=== PATIENT | male | born 1945 | race Caucasian/White ===

== ENCOUNTER 2022-11-20 11:14 | Inpatient (IN) | payer MEDICARE ==
[2022-11-20 12:00] LABS: #Eosinphils 0.2 thou/uL (0.0-0.7); #Lymphocytes 1.5 thou/uL (1.20-3.40); #Monocytes 0.8 thou/uL (0.11-0.59); #Neutrophils 5.4 thou/uL (1.40-6.50); %Basophils 0.2 % (0.0-1.0); %Eosinophils 2.5 % (0.0-10.0); %Lymphocytes 18.4 % (21.0-51.0); %Monocytes 10.6 % (0.0-10.0); %Neutrophils 68.3 % (42.0-75.0); Hemoglobin 12.5 g/dL (14.0-18.0); Mean Corpuscular HGB CONC 33.3 g/dL (32.0-36.0); Platelet Count 259 10x3/uL (130-400); RBC Distribution Width 12.4 % (11.5-14.5); Red Blood Cell (RBC) Count 3.67 mill/uL (4.70-6.10); White Blood Cell (WBC) Count 7.9 10x3/uL (4.8-10.8)
[2022-11-20] MEDS ORDERED: Ondansetron PF 4 MG/2 ML Vial ONE (12:07)
[2022-11-20 12:14] LABS: INR-International Normal Ratio 1.2
[2022-11-20 12:15] LABS: PTT 34.4 sec (22.9-36.1)
[2022-11-20 12:18] LABS: ALT (SGPT) 12 U/L (8-55); AST (SGOT) 15 U/L (5-34); Albumin 3.1 g/dL (3.4-4.8); Alkaline Phosphatase 112 U/L (40-110); Anion Gap 11 mmol/L (10-20); BUN (Urea Nitrogen) 15 mg/dL (8.4-25.7); Bilirubin, Total 0.8 mg/dL (0.2-1.2); Calc. Creatinine Clearance 0 mL/min (70-130); Calcium 8.4 mg/dL (7.8-10.44); Carbon Dioxide 25 mmol/L (23-31); Chloride 104 mmol/L (98-107); Estimated GFR 101; Globulin 2.5 g/dL (2.4-3.5); Glucose 118 mg/dL (83-110); Potassium 3.9 mmol/L (3.5-5.1); Protein, Total 5.6 g/dL (5.8-8.1); Sodium 136 mmol/L (136-145)
[2022-11-20 12:34] LABS: Bilirubin Negative (Negative); Blood, Urine Large (Negative); Glucose, Urine (Dipstick) Negative (Negative); Ketone, Urine Trace mg/dL (Negative); Leukocyte Moderate (Negative); Nitrite Negative (Negative); Protein, Urine (Dipstick) 100 mg/dL (Neg-Trace); pH, Urine 5.5 (5.0-9.0)
[2022-11-20 12:43] LABS: Bacteria/HPF 2+ HPF (None Seen); Clarity Cloudy (Clear); RBC/HPF 21-50 HPF (0-3); Specific Gravity, Urine 1.022 (1.002-1.036)
[2022-11-20] MEDS ORDERED: Meropenem 2 GM in Sodium Chloride 0.9% 100 ML IVPB SCH (14:00)
[2022-11-20] MEDS ORDERED: Dextrose 5% in Water 1,000 ML IV PRN (15:53)
[2022-11-20] MEDS ORDERED: HumaLOG 300 UNITS/3 ML VIAL SC PRN ×2 (15:53)
[2022-11-20] MEDS ORDERED: Dextrose 50% Abboject 50 ML SYRINGE SLOW IVP PRN (15:53)
[2022-11-20] MEDS ORDERED: Insulin Glargine 30 UNITS/0.3 ML VIAL SC SCH (21:00)
[2022-11-20] MEDS: Bupropion 150 MG SR TAB PO SCH (21:04)
[2022-11-20] MEDS: oxyCODONE/Acetaminophen 5 mg/325 mg Tablet PO PRN (21:05)
[2022-11-20] MEDS: Apixaban 5 MG TAB PO SCH (21:05)
[2022-11-20] MEDS: traZODone HCl 50 MG TAB PO SCH (21:06)
[2022-11-20] MEDS: Simvastatin 5 MG TAB PO SCH (21:06)
[2022-11-20] MEDS ORDERED: Non-Formulary Item 1 EACH (Oxycodone Hcl/Acetaminophen [Percocet] 10 MG/325 MG Tablet) PO SCH (22:00)
[2022-11-21] MEDS: Meropenem 1 GM in Sodium Chloride 0.9% 100 ML IVPB SCH ×3 (01:27→16:00)
[2022-11-21 04:31] LABS: #Eosinphils 0.2 thou/uL (0.0-0.7); #Lymphocytes 1.6 thou/uL (1.20-3.40); #Monocytes 0.9 thou/uL (0.11-0.59); #Neutrophils 4.6 thou/uL (1.40-6.50); %Basophils 0.5 % (0.0-1.0); %Eosinophils 2.4 % (0.0-10.0); %Lymphocytes 22.2 % (21.0-51.0); %Monocytes 11.7 % (0.0-10.0); %Neutrophils 63.2 % (42.0-75.0); Hemoglobin 11.5 g/dL (14.0-18.0); Mean Platelet Volume 5.8 fL (7.4-10.4); Platelet Count 234 10x3/uL (130-400); RBC Distribution Width 12.2 % (11.5-14.5); White Blood Cell (WBC) Count 7.3 10x3/uL (4.8-10.8)
[2022-11-21 04:50] LABS: ALT (SGPT) 9 U/L (8-55); AST (SGOT) 12 U/L (5-34); Albumin 2.6 g/dL (3.4-4.8); Alkaline Phosphatase 103 U/L (40-110); Anion Gap 11 mmol/L (10-20); BUN (Urea Nitrogen) 12 mg/dL (8.4-25.7); Bilirubin, Total 0.5 mg/dL (0.2-1.2); Calc. Creatinine Clearance 131 mL/min (70-130); Calcium 8.2 mg/dL (7.8-10.44); Carbon Dioxide 24 mmol/L (23-31); Chloride 106 mmol/L (98-107); Estimated GFR 106; Globulin 2.4 g/dL (2.4-3.5); Glucose 91 mg/dL (83-110); Potassium 3.5 mmol/L (3.5-5.1); Sodium 137 mmol/L (136-145)
[2022-11-21] MEDS: metFORMIN 500 MG TAB PO SCH ×3 (07:58→15:59)
[2022-11-21] MEDS ORDERED: HumaLOG 300 UNITS/3 ML VIAL SC SCH (08:00)
[2022-11-21] MEDS ORDERED: Lactated Ringer's 500 ML IV SCH (08:30)
[2022-11-21] MEDS ORDERED: FLU VACC QS2022-23(65YR UP)/PF 240 MCG/0.7 ML SYRINGE IM ONE (09:00)
[2022-11-21] MEDS ORDERED: Insulin Glargine 30 UNITS/0.3 ML VIAL SC SCH (09:00)
[2022-11-21] MEDS: Bupropion 150 MG SR TAB PO SCH ×2 (09:28→20:33)
[2022-11-21] MEDS: Apixaban 5 MG TAB PO SCH ×2 (09:28→20:33)
[2022-11-21] MEDS: Polyethylene Glycol 3350 17 GM Packet PO SCH (09:29)
[2022-11-21] MEDS ORDERED: Lactated Ringer's 1,000 ML IV SCH (10:45)
[2022-11-21] MEDS: oxyCODONE/Acetaminophen 5 mg/325 mg Tablet PO PRN (15:58)
[2022-11-21] MEDS: traZODone HCl 50 MG TAB PO SCH (20:33)
[2022-11-21] MEDS: Simvastatin 5 MG TAB PO SCH (20:33)
[2022-11-22] MEDS: Meropenem 1 GM in Sodium Chloride 0.9% 100 ML IVPB SCH ×2 (01:36→09:15)
[2022-11-22] MEDS: oxyCODONE/Acetaminophen 5 mg/325 mg Tablet PO PRN ×3 (01:52→20:46)
[2022-11-22 05:00] LABS: #Eosinphils 0.2 thou/uL (0.0-0.7); #Lymphocytes 1.5 thou/uL (1.20-3.40); #Monocytes 0.9 thou/uL (0.11-0.59); #Neutrophils 5.4 thou/uL (1.40-6.50); %Basophils 0.5 % (0.0-1.0); %Eosinophils 2.8 % (0.0-10.0); %Lymphocytes 18.9 % (21.0-51.0); %Monocytes 11.2 % (0.0-10.0); %Neutrophils 66.6 % (42.0-75.0); Mean Corpuscular HGB CONC 34.5 g/dL (32.0-36.0); Mean Corpuscular Hemoglobin 35.1 pg (27.0-31.0); Platelet Count 269 10x3/uL (130-400); RBC Distribution Width 12.5 % (11.5-14.5)
[2022-11-22 05:25] LABS: ALT (SGPT) 10 U/L (8-55); AST (SGOT) 15 U/L (5-34); Albumin 3.1 g/dL (3.4-4.8); Alkaline Phosphatase 116 U/L (40-110); Anion Gap 10 mmol/L (10-20); BUN (Urea Nitrogen) 6 mg/dL (8.4-25.7); Bilirubin, Total 0.7 mg/dL (0.2-1.2); Calc. Creatinine Clearance 121 mL/min (70-130); Calcium 8.5 mg/dL (7.8-10.44); Carbon Dioxide 25 mmol/L (23-31); Chloride 108 mmol/L (98-107); Estimated GFR 103; Globulin 2.5 g/dL (2.4-3.5); Glucose 92 mg/dL (83-110); Potassium 3.9 mmol/L (3.5-5.1); Protein, Total 5.6 g/dL (5.8-8.1); Sodium 139 mmol/L (136-145)
[2022-11-22] MEDS: Polyethylene Glycol 3350 17 GM Packet PO SCH (09:15)
[2022-11-22] MEDS: Bupropion 150 MG SR TAB PO SCH ×2 (09:15→20:48)
[2022-11-22] MEDS: Apixaban 5 MG TAB PO SCH ×2 (09:15→20:46)
[2022-11-22] MEDS: metFORMIN 500 MG TAB PO SCH ×2 (09:15→16:26)
[2022-11-22] MEDS: Acetaminophen 325 MG TAB PO PRN (16:26)
[2022-11-22 17:02] VITALS: BMI 21.3
[2022-11-22] MEDS: traZODone HCl 50 MG TAB PO SCH (20:46)
[2022-11-22] MEDS: Simvastatin 5 MG TAB PO SCH (20:47)
[2022-11-23 05:05] LABS: #Eosinphils 0.1 thou/uL (0.0-0.7); #Lymphocytes 1.8 thou/uL (1.20-3.40); #Monocytes 1.1 thou/uL (0.11-0.59); #Neutrophils 8.8 thou/uL (1.40-6.50); %Basophils 0.3 % (0.0-1.0); %Eosinophils 0.9 % (0.0-10.0); %Lymphocytes 15.2 % (21.0-51.0); %Monocytes 9.1 % (0.0-10.0); %Neutrophils 74.5 % (42.0-75.0); Mean Corpuscular HGB CONC 34.1 g/dL (32.0-36.0); Mean Corpuscular Hemoglobin 34.2 pg (27.0-31.0); Mean Platelet Volume 5.8 fL (7.4-10.4); Platelet Count 309 10x3/uL (130-400); RBC Distribution Width 12.3 % (11.5-14.5); White Blood Cell (WBC) Count 11.8 10x3/uL (4.8-10.8)
[2022-11-23 05:26] LABS: ALT (SGPT) 11 U/L (8-55); AST (SGOT) 19 U/L (5-34); Albumin 3.3 g/dL (3.4-4.8); Alkaline Phosphatase 123 U/L (40-110); Anion Gap 15 mmol/L (10-20); BUN (Urea Nitrogen) 7 mg/dL (8.4-25.7); Calc. Creatinine Clearance 119 mL/min (70-130); Calcium 8.9 mg/dL (7.8-10.44); Carbon Dioxide 22 mmol/L (23-31); Chloride 103 mmol/L (98-107); Estimated GFR 103; Globulin 2.8 g/dL (2.4-3.5); Glucose 93 mg/dL (83-110); Potassium 3.9 mmol/L (3.5-5.1); Protein, Total 6.1 g/dL (5.8-8.1); Sodium 136 mmol/L (136-145)
[2022-11-23] MEDS: Bupropion 150 MG SR TAB PO SCH ×2 (08:43→20:39)
[2022-11-23] MEDS: Polyethylene Glycol 3350 17 GM Packet PO SCH (08:43)
[2022-11-23] MEDS: metFORMIN 500 MG TAB PO SCH ×2 (08:43→17:33)
[2022-11-23] MEDS: Apixaban 5 MG TAB PO SCH ×2 (08:43→20:37)
[2022-11-23] MEDS: oxyCODONE/Acetaminophen 5 mg/325 mg Tablet PO PRN ×2 (10:23→20:38)
[2022-11-23] MEDS: Acetaminophen 325 MG TAB PO PRN (13:22)
[2022-11-23] MEDS: Simvastatin 5 MG TAB PO SCH (20:37)
[2022-11-23] MEDS: traZODone HCl 50 MG TAB PO SCH (20:39)
[2022-11-24 05:20] LABS: ALT (SGPT) 12 U/L (8-55); AST (SGOT) 24 U/L (5-34); Albumin 3.5 g/dL (3.4-4.8); Alkaline Phosphatase 135 U/L (40-110); Anion Gap 18 mmol/L (10-20); BUN (Urea Nitrogen) 11 mg/dL (8.4-25.7); Bilirubin, Total 1.2 mg/dL (0.2-1.2); Calc. Creatinine Clearance 109 mL/min (70-130); Calcium 8.8 mg/dL (7.8-10.44); Carbon Dioxide 18 mmol/L (23-31); Chloride 101 mmol/L (98-107); Estimated GFR 100; Globulin 2.7 g/dL (2.4-3.5); Glucose 104 mg/dL (83-110); Protein, Total 6.2 g/dL (5.8-8.1); Sodium 133 mmol/L (136-145)
[2022-11-24 08:57] LABS: Magnesium 1.8 mg/dL (1.6-2.6); Phosphorus 3.1 mg/dL (2.3-4.7)
[2022-11-24] MEDS: Apixaban 5 MG TAB PO SCH ×2 (09:57→21:00)
[2022-11-24] MEDS: metFORMIN 500 MG TAB PO SCH ×2 (09:57→16:38)
[2022-11-24] MEDS: Bupropion 150 MG SR TAB PO SCH ×2 (09:58→22:23)
[2022-11-24] MEDS: oxyCODONE/Acetaminophen 5 mg/325 mg Tablet PO PRN (10:11)
[2022-11-24] MEDS ORDERED: Non-Formulary Item 1 EACH (Acetaminophen [Tylenol Arthritis] 650 MG Tablet.Er) PO PRN ×2 (10:41→10:49)
[2022-11-24] MEDS ORDERED: Acetaminophen 325 MG TAB PO PRN (10:50)
[2022-11-24] MEDS ORDERED: fentaNYL 100 mcg/hour Patch TD SCH (12:00)
[2022-11-24] MEDS ORDERED: Metoprolol Tartrate 5 MG/5 ML VIAL IVP SCH (12:15)
[2022-11-24] MEDS ORDERED: Ondansetron ODT 4 MG TAB PO PRN (12:51)
[2022-11-24] MEDS ORDERED: Non-Formulary Item 1 EACH (Gabapentin [Gabapentin] 600 MG Tablet) PO SCH (15:00)
[2022-11-24] MEDS: Gabapentin 400 MG CAP PO SCH ×2 (16:39→20:58)
[2022-11-24] MEDS: Simvastatin 5 MG TAB PO SCH (20:58)
[2022-11-24] MEDS: Magnesium Oxide 400 MG TAB PO SCH (21:00)
[2022-11-24] MEDS: traZODone HCl 150 MG TAB PO SCH (21:01)
[2022-11-24] MEDS: Zolpidem Tartrate 5 MG TAB PO SCH (21:32)
[2022-11-24] MEDS: Melatonin 3 MG TAB PO SCH (21:32)
[2022-11-25 05:08] LABS: ALT (SGPT) 12 U/L (8-55); AST (SGOT) 21 U/L (5-34); Albumin 3.5 g/dL (3.4-4.8); Alkaline Phosphatase 121 U/L (40-110); Anion Gap 10 mmol/L (10-20); BUN (Urea Nitrogen) 19 mg/dL (8.4-25.7); Bilirubin, Total 0.8 mg/dL (0.2-1.2); Calc. Creatinine Clearance 105 mL/min (70-130); Calcium 8.4 mg/dL (7.8-10.44); Carbon Dioxide 25 mmol/L (23-31); Chloride 103 mmol/L (98-107); Estimated GFR 99; Globulin 2.4 g/dL (2.4-3.5); Glucose 103 mg/dL (83-110); Potassium 3.3 mmol/L (3.5-5.1); Protein, Total 5.9 g/dL (5.8-8.1); Sodium 135 mmol/L (136-145)
[2022-11-25] MEDS ORDERED: Potassium Chloride 20 MEQ TAB PO SCH (08:30)
[2022-11-25] MEDS: Bupropion 150 MG SR TAB PO SCH ×2 (09:24→20:48)
[2022-11-25] MEDS: Apixaban 5 MG TAB PO SCH ×2 (09:25→20:40)
[2022-11-25] MEDS: metFORMIN 500 MG TAB PO SCH ×2 (09:25→17:31)
[2022-11-25] MEDS: Gabapentin 400 MG CAP PO SCH ×3 (09:25→20:39)
[2022-11-25] MEDS: Magnesium Oxide 400 MG TAB PO SCH ×2 (09:25→20:40)
[2022-11-25] MEDS: traZODone HCl 150 MG TAB PO SCH (20:40)
[2022-11-25] MEDS: Melatonin 3 MG TAB PO SCH (20:52)
[2022-11-25] MEDS: Zolpidem Tartrate 5 MG TAB PO SCH (20:52)
[2022-11-25] MEDS ORDERED: Atorvastatin Calcium 40 MG TAB PO SCH (21:00)
[2022-11-26 05:28] LABS: ALT (SGPT) 11 U/L (8-55); AST (SGOT) 22 U/L (5-34); Albumin 3.1 g/dL (3.4-4.8); Alkaline Phosphatase 109 U/L (40-110); Anion Gap 14 mmol/L (10-20); BUN (Urea Nitrogen) 23 mg/dL (8.4-25.7); Bilirubin, Total 0.7 mg/dL (0.2-1.2); Calc. Creatinine Clearance 115 mL/min (70-130); Calcium 8.9 mg/dL (7.8-10.44); Carbon Dioxide 21 mmol/L (23-31); Chloride 105 mmol/L (98-107); Estimated GFR 102; Globulin 2.7 g/dL (2.4-3.5); Glucose 104 mg/dL (83-110); Potassium 4.7 mmol/L (3.5-5.1); Protein, Total 5.8 g/dL (5.8-8.1); Sodium 135 mmol/L (136-145)
[2022-11-26] MEDS: metFORMIN 500 MG TAB PO SCH (08:51)
[2022-11-26] MEDS: Gabapentin 400 MG CAP PO SCH ×2 (08:51→15:17)
[2022-11-26] MEDS: Bupropion 150 MG SR TAB PO SCH (08:51)
[2022-11-26] MEDS: Apixaban 5 MG TAB PO SCH (08:51)
[2022-11-26] MEDS: Magnesium Oxide 400 MG TAB PO SCH (08:52)
[2022-11-26 16:34] VITALS: BP 114/60; TEMP 97.2
== END 2022-11-26 16:55 | DRG 698 ==
LOC: ERS 11:14 → ERHOLD 14:03 → 2NO 17:50 → OBSVTOIN 11-23 09:39
PROVIDERS: ADMIT Family Medicine; ATTEND Family Medicine
DX: T83.518A Infection and inflammatory reaction due to other urinary catheter, initial encounter (principal); A41.59 Other Gram-negative sepsis; L89.154 Pressure ulcer of sacral region, stage 4; N39.0 Urinary tract infection, site not specified; I48.92 Unspecified atrial flutter; I48.21 Permanent atrial fibrillation; Z20.822 Contact with and (suspected) exposure to COVID-19; E78.5 Hyperlipidemia, unspecified; I25.10 Atherosclerotic heart disease of native coronary artery without angina pectoris; F02.80 Dementia in other diseases classified elsewhere, unspecified severity, without behavioral disturbance, psychotic disturbance, mood disturbance, and anxiety; G20 Parkinson's disease; E11.40 Type 2 diabetes mellitus with diabetic neuropathy, unspecified; E87.6 Hypokalemia; G47.00 Insomnia, unspecified; B96.1 Klebsiella pneumoniae [K. pneumoniae] as the cause of diseases classified elsewhere; Z96.653 Presence of artificial knee joint, bilateral; Z95.1 Presence of aortocoronary bypass graft; Z79.01 Long term (current) use of anticoagulants; Z79.4 Long term (current) use of insulin; Z79.84 Long term (current) use of oral hypoglycemic drugs; Z79.899 Other long term (current) drug therapy; Z90.49 Acquired absence of other specified parts of digestive tract; Y84.6 Urinary catheterization as the cause of abnormal reaction of the patient, or of later complication, without mention of misadventure at the time of the procedure
CPT/HCPCS: 36415; 36416; 71045; 74176; 80053; 81003; 81015; 83605; 83735; 84100; 84484; 85025; 85610; 85730; 87040; 87077; 87086; 87186; 93005; 93306; 96365; 96366; 96375; 96376; 97139; G0378; J1815; J2185; J2405; J3490; J7120; U0003; U0005